=== PATIENT | female | born 1995 | race Caucasian/White ===

== ENCOUNTER 2017-09-08 18:29 | Emergency (ER) | payer SELFPAY ==
[~2017-09-08] VITALS: Ht 152.4 cm; Wt 53.3 kg
[2017-09-08 18:39] VITALS: Ht 152.4 cm; Wt 53.3 kg
[2017-09-08] MEDS ORDERED: ACETAMINOPHEN 500 MG TAB PO STA (20:46)
[2017-09-08 21:17] LABS: BASOPHIL # 0.1 10^3/ul (0.0-0.1); BASOPHILS % 0.5 % (0.0-2.0); EOSINOPHILS # 0.1 10^3/ul (0.0-0.5); EOSINOPHILS % 1.2 % (0.0-7.0); HEMATOCRIT 42.2 % (37.0-47.0); HEMOGLOBIN 14.6 g/dl (12.0-16.0); LYMPHOCYTES # 2.8 10^3/ul (0.8-2.9); LYMPHOCYTES % 29.6 % (15.0-51.0); MEAN CORPUSCULAR HGB CONC 34.6 g/dl (32.0-37.0); MEAN CORPUSCULAR VOLUME 89.6 fl (82.0-101.0); MEAN PLATELET VOLUME 10.7 fl (7.4-10.4); MONOCYTE # 0.7 10^3/ul (0.3-0.9); MONOCYTES % 7.1 % (0.0-11.0); NEUTROPHIL # 5.8 10^3/ul (1.6-7.5); NEUTROPHILS % 61.4 % (39.0-77.0); PLATELET COUNT 281 10^3/UL (140-415); RED BLOOD COUNT 4.71 10^6/ul (4.20-5.40); RED CELL DISTRIBUTION WIDTH 11.8 % (11.5-14.5); WHITE BLOOD COUNT 9.5 10^3/ul (4.8-10.8)
[2017-09-08 21:26] LABS: ADD UMIC YES; UR ASCORBIC ACID NEGATIVE (NEGATIVE); UR BILIRUBIN (Dip) NEGATIVE (NEGATIVE); UR BLOOD (Dip) 2+ mg/dL (NEGATIVE); UR CLARITY CLEAR (CLEAR); UR COLOR STRAW (YELLOW); UR GLUCOSE (Dip) NEGATIVE (NEGATIVE); UR KETONES (Dip) NEGATIVE (NEGATIVE); UR LEUKOCYTE ESTERASE (Dip) TRACE Leu/ul (NEGATIVE); UR NITRITE (Dip) NEGATIVE (NEGATIVE); UR RBC 0 /HPF (0-5); UR SPECIFIC GRAVITY (Dip) 1.006 (1.003-1.030); UR TOTAL PROTEIN (Dip) NEGATIVE (NEGATIVE); UR UROBILINOGEN (Dip) NEGATIVE (NEGATIVE)
[2017-09-08 21:48] LABS: ALBUMIN 4.9 g/dl (3.3-4.9); ALBUMIN/GLOBULIN RATIO 1.22; BILIRUBIN,INDIRECT 0.1 mg/dl (0-1.1); BILIRUBIN,TOTAL 0.1 mg/dl (0.2-1.3); CALCIUM 10.5 mg/dl (8.4-10.2); CREATININE 0.67 mg/dl (0.44-1.00); POTASSIUM 3.5 mmol/L (3.5-5.1); TOTAL PROTEIN 8.9 g/dl (6.1-8.1)
--- NOTE | 2017-09-08 21:49 | ERD ---
ER Documentation Chief Complaint Chief Complaint epigastric pain w/ nausea x 1 day HPI 22-year-old female complaining of epigastric abdominal pain 1 day. Patient reports 3 episodes of nonbloody and nonbilious vomiting. Denies fever or chills. Denies diarrhea. Denies cough or runny nose. Her LMP was approximately 10 days ago, she reports noticed some spotting today. ROS All systems reviewed and are negative except as per history of present illness. Medications Home Meds Active Scripts Acetaminophen* (Tylophen*) 500 Mg Capsule, 1 CAP PO Q6H Y for PAIN AND OR ELEVATED TEMP, #20 CAP Prov:SUJATA HORAN Christine. JEWELRY DRILL OPERATOR 09/08/17 Allergies Allergies: Coded Allergies: No Known Allergy (Unverified , 09/08/17) PMhx/Soc Medical and Surgical Hx: pt denies Medical Hx Anesthesia Reaction: No Hx Neurological Disorder: No Hx Respiratory Disorders: No Hx Cardiac Disorders: No Hx Psychiatric Problems: No Hx Miscellaneous Medical Probl: No Hx Alcohol Use: No Hx Substance Use: No Hx Tobacco Use: No Smoking Status: Never smoker Physical Exam Vitals Vital Signs Date Time Temp Pulse Resp B/P Pulse Ox O2 Delivery O2 Flow Rate FiO2 09/08/17 23:00 99.3 79 18 105/62 99 Room Air 09/08/17 18:39 100.2 86 20 117/63 100 Physical Exam General: Well-developed, well-nourished, conscious and coherent, in no distress Skin: Warm and dry without rash, good texture and turgor Head: Normocephalic without evidence of trauma Eyes: Sclera and conjunctivae normal; pupils equal, round, and reactive to light; extraocular movements are intact Chest: Normal AP diameter. Good expansion without retractions. Nontender. Lungs are clear to auscultate bilaterally with good tidal volume Heart: Regular rate and rhythm. No murmur, rub, or gallops heard Abdomen: Soft, epigastric, left lower and right lower quadrant tenderness without masses, guarding, or rebound. Bowel sounds are active. No hepatosplenomegaly Back: Without spinal or CVA tenderness Extremities: Full range of motion. Good strength bilaterally. No clubbing, cyanosis, or edema. Peripheral pulses are intact. Sensation intact Neuro: Alert and oriented 4, GCS 15. Cranial nerves grossly intact. Motor and sensory exams nonfocal. Moves all extremities. Speech clear. Gait normal Result Diagram: 09/08/17205409/[id number]/[id number] Results 24 hrs Laboratory Tests Test 09/08/17 20:55 White Blood Count 9.510^3/ul Red Blood Count 4.7110^6/ul Hemoglobin 14.6g/dl Hematocrit 42.2% Mean Corpuscular Volume 89.6fl Mean Corpuscular Hemoglobin 31.0pg Mean Corpuscular Hemoglobin Concent 34.6g/dl Red Cell Distribution Width 11.8% Platelet Count 39877^3/UL Mean Platelet Volume 10.7fl Neutrophils % 61.4% Lymphocytes % 29.6% Monocytes % 7.1% Eosinophils % 1.2% Basophils % 0.5% Nucleated Red Blood Cells % 0.0/100WBC Neutrophils # 5.810^3/ul Lymphocytes # 2.810^3/ul Monocytes # 0.710^3/ul Eosinophils # 0.110^3/ul Basophils # 0.110^3/ul Nucleated Red Blood Cells # 0.010^3/ul Urine Color STRAW Urine Clarity CLEAR Urine pH 5.0 Urine Specific [place] 1.006 Urine Ketones NEGATIVEmg/dL Urine Nitrite NEGATIVEmg/dL Urine Bilirubin NEGATIVEmg/dL Urine Urobilinogen NEGATIVEmg/dL Urine Leukocyte Esterase TRACELeu/ul Urine Microscopic RBC 0/HPF Urine Microscopic WBC 4/HPF Urine Hemoglobin 2+mg/dL Urine Glucose NEGATIVEmg/dL Urine Total Protein NEGATIVEmg/dl Sodium Level 148mmol/L Potassium Level 3.5mmol/L Chloride Level 105mmol/L Carbon Dioxide Level 26mmol/L Anion Gap 21 Blood Urea Nitrogen 7mg/dl Creatinine 0.67mg/dl Glucose Level 75mg/dl Calcium Level 10.5mg/dl Total Bilirubin 0.1mg/dl Direct Bilirubin 0.00mg/dl Indirect Bilirubin 0.1mg/dl Aspartate Amino Transf (AST/SGOT) 26IU/L Alanine Aminotransferase (ALT/SGPT) 28IU/L Alkaline Phosphatase 106IU/L Total Protein 8.9g/dl Albumin 4.9g/dl Globulin 4.00g/dl Albumin/Globulin Ratio 1.22 Lipase 150U/L Current Medications Medications (Trade) Dose Ordered Sig/Melissa Route PRN Reason Start Time Stop Time Status Last Admin Dose Admin Acetaminophen (Tylenol Tab) 500 mg ONCE STAT PO 09/08/17 20:46 09/08/17 20:47 DC 09/08/17 20:50 PROCEDURE: Pelvic ultrasound. CLINICAL INDICATION: Pelvic pain. TECHNIQUE: Farrar scale, color doppler, spectral doppler ultrasound of the pelvis was performed with transabdominal and transvaginal transducers. COMPARISON: No prior studies are available for comparison. FINDINGS: Uterus Size: 7.8 x 3.8 x 5.2 cm Position: Anteverted. Echogenicity: Normal. Lesions: Scattered benign punctate calcifications. Cervix: Normal. Endometrium: Thickness: 6.2 mm. Appearance: Normal. Lesions: None. Right Ovary: Size: 1.9 x 1.0 x 1.2 cm Appearance: Normal. Lesion: None. Blood flow: Normal. Left Ovary: Size: 2.7 x 1.5 x 1.9 cm Appearance: Normal. Lesion: None. Blood flow: Normal. Adnexa: Masses: None. Free fluid: None. IMPRESSION: 1. Normal pelvic ultrasound. 2. Scattered benign uterine calcifications. RPTAT: PP .Sherif Johnson MD, MD Date Time Electronically viewed and signed by .Sherif Johnson MD, MD on 09/08/2017 22:46 .B/ CC: SUJATA HORAN. JEWELRY DRILL OPERATOR Procedures/MDM Well-appearing 22-year-old female presented ED with abdominal pain and vomiting 1 day. Her is negative. UA showed trace blood, 2+ hemoglobin, otherwise negative. CBC, CMP, and lipase are unremarkable. Pelvic ultrasound is obtained. Pelvic ultrasound was normal, with incidental benign scattered calcifications of the uterus. This is centered the cause of patient's epigastric pain and lower abdominal tenderness at this time. I suspect the patient may have a viral illness. Patient appears well, stable for discharge and outpatient management. Medical decision making shared with patient and family. Education provided to patient and family. Patient and family expressed understanding of the plan. Medications on discharge: Tylenol. Follow-up: Primary care provider in 2-3 days or return to ED if worse. Disclaimer: Inadvertent spelling and grammatical errors are likely due to EHR/ dictation software use and do not reflect on the overall quality of patient care. Also, please note that the electronic time recorded on this note does not necessarily reflect the actual time of the patient encounter. Departure Diagnosis: Primary Impression: Abdominal pain Abdominal location: lower abdomen, unspecified Qualified Code: R10.30 - Lower abdominal pain Additional Impression: Epigastric abdominal pain SUJATA HORAN NP Sep 08, 2017 21:49
--- NOTE | 2017-09-08 22:46 | RADRPT ---
PROCEDURE: Pelvic ultrasound. CLINICAL INDICATION: Pelvic pain. TECHNIQUE: Farrar scale, color doppler, spectral doppler ultrasound of the pelvis was performed with transabdominal and transvaginal transducers. COMPARISON: No prior studies are available for comparison. FINDINGS: Uterus Size: 7.8 x 3.8 x 5.2 cm Position: Anteverted. Echogenicity: Normal. Lesions: Scattered benign punctate calcifications. Cervix: Normal. Endometrium: Thickness: 6.2 mm. Appearance: Normal. Lesions:None. Right Ovary: Size: 1.9 x 1.0 x 1.2 cm Appearance: Normal. Lesion: None. Blood flow: Normal. Left Ovary: Size: 2.7 x 1.5 x 1.9 cm Appearance: Normal. Lesion: None. Blood flow: Normal. Adnexa: Masses: None. Free fluid: None. IMPRESSION: 1. Normal pelvic ultrasound. 2. Scattered benign uterine calcifications. RPTAT: PP .Sherif Johnson MD, MD Date Time Electronically viewed and signed by .Sherif Johnson MD, on 09/08/2017 22:46 .B/
[2017-09-08] MEDS ORDERED: ACET500C5 PO (22:57)
[2017-09-08 23:00] VITALS: BP 105/62; PULSE 79; RESP 18; TEMP 99.3
== END 2017-09-08 23:00 | disposition home or self-care (01) ==
LOC: FTE 18:29 → EDBD 18:29 → FTE 23:00
DX: R10.13 Epigastric pain (principal)
CPT/HCPCS: 36415; 76830; 76856; 80053; 81001; 83690; 85025